=== PATIENT | male | born 1970 | race Caucasian/White ===

== ENCOUNTER 2016-09-08 21:59 | Emergency (ER) | payer BC, OTHER ==
--- NOTE | 2016-09-08 23:05 | EDM.PDOC ---
ED HPI GENERAL MEDICAL PROBLEM - General Chief Complaint: Lower Extremity Injury/Pain Stated Complaint: LEFT ANKLE INJURY Time Seen by Provider: 09/08/16 22:45 Source of Information: Reports: Patient, Family (), RN Notes Reviewed History Limitations: Reports: No Limitations - History of Present Illness INITIAL COMMENTS - FREE TEXT/NARRATIVE: The patient states that he developed left ankle pain yesterday afternoon as he was standing on a piece of equipment at an unusual angle that put stress on his left ankle. He states that the pain began while he was standing unusually, but became worse last night, and today the patient has considerable pain and swelling to the left ankle. He states that he did not suffer any direct injury to the left ankle. He states that the pain was made better last night after drinking a few beers. No prior left ankle injury. The patient's is concerned that the patient has a blood clot in his ankle. The patient's PCP is Keena Luis. Left Ankle Pain Score (Numeric/FACES): 7 - Related Data Allergies Allergy/AdvReac Type Severity Reaction Status Date / Time No Known Allergies Allergy Verified 09/08/16 22:10 Home Meds: Home Meds . [No Known Home Meds] 09/08/16 [History] Past Medical History Musculoskeletal History: Reports: Fracture (clavicle) - Past Surgical History HEENT Surgical History: Reports: Oral Surgery ([place] teeth extraction), Tonsillectomy Social & Family History - Family History Family Medical History: Noncontributory - Tobacco Use Smoking Status *Q: Former Smoker - Caffeine Use Caffeine Use: Reports: Coffee - Alcohol Use Alcohol Use History: Yes Alcohol Use Frequency: Socially - Recreational Drug Use Recreational Drug Use: No - Living Situation & Occupation Living situation: Reports: , with Spouse, with Family (4 daughters) Occupation: Employed ([employer]) Review of Systems - Review of Systems Review Of Systems: See Below Constitutional: Reports: No Symptoms Eyes: Reports: No Symptoms Ears: Reports: No Symptoms Nose: Reports: No Symptoms Mouth/Throat: Reports: No Symptoms Respiratory: Reports: No Symptoms Cardiovascular: Reports: No Symptoms GI/Abdominal: Reports: No Symptoms Genitourinary: Reports: No Symptoms Musculoskeletal: Reports: No Symptoms Skin: Reports: No Symptoms Neurological: Reports: No Symptoms Psychiatric: Reports: No Symptoms ED EXAM, GENERAL - Physical Exam Exam: See Below Exam Limited By: No Limitations General Appearance: Alert, WD/WN, No Apparent Distress Extremities: Other (There is considerable swelling, and mild ecchymosis of the left ankle, when compared to the right. There is tenderness primarily to the lateral aspect of the ankle; no significant tenderness to the anterior or posterior syndesmoses, or medial ankle. Mild pretibial edema on the left, although there is some pretibial edema on the right, as well. Neurovascular status of the left lower extremity is intact.) Course - Vital Signs Last Recorded V/S: Last Vital Signs Temp 37.3 C 09/08/16 22:07 Pulse 97 09/08/16 22:07 Resp 16 09/08/16 22:07 BP 152/77 H 09/08/16 22:07 Pulse Ox 94 L 09/08/16 22:07 - Orders/Labs/Meds Orders: Active Orders 24 hr Category Date Time Status Ankle Min 3V Lt [CR] Stat Exams 09/08/16 22:36 Taken DME for Discharge [COMM] Stat Oth 09/08/16 23:55 Ordered Labs: Laboratory Tests 09/08/16 Range/Units 23:08 D-Dimer, Quantitative 0.56 (0.19-0.59) mg/L - Re-Assessments/Exams Free Text/Narrative Re-Assessment/Exam: 09/08/16 23:30 4-view radiographs of the left ankle appear to be unremarkable. No fractures or dislocations identified. Formal read per the Radiologist pending. 09/08/16 23:58 The patient's d-dimer is negative. X-ray results discussed with the patient and his . He appears to have sprained his left ankle. He will be placed into an Aircast. I will refer him to Dr. Paz, should his symptoms not improve. Departure - Departure Time of Disposition: 23:59 Disposition: Home, Self-Care 01 Condition: Good Clinical Impression: Left ankle sprain - Discharge Information Referrals: Keena Luis NP [Primary Care Provider] - Ramu Paz MD [Physician] - Forms: ED Department Discharge Additional Instructions: You were seen in the emergency room for left ankle pain that developed after standing on your left ankle at an unusual angle. Workup in the ER included x-rays of your left ankle, and a D-dimer, to check for a blood clot. Your x-rays appear to be normal. No broken bones or dislocations. Your D-dimer is negative. You do not have a blood clot. You appear to have sprained your left ankle. You have been placed into an Aircast. Apply this each morning, and remove at bedtime. Elevate your left foot as much as possible when not walking around. Apply an ice pack to your left ankle as much as possible for the next 48 hours, to help minimize swelling. Take [id number] ibuprofen, 2-3 tablets (400-600 mg) every 8 hours, with food, as needed for pain. After one week, begin walking without the Aircast, even if you have discomfort. If you continue to have pain after 2 weeks, please follow-up with the Orthopedic Surgeon Dr. Paz for further evaluation. If any other problems, please do not hesitate to return to the ER. - My Orders Last 24 Hours: My Active Orders 09/08/16 22:36 Ankle Min 3V Lt [CR] Stat 09/08/16 23:55 DME for Discharge [COMM] Stat - Assessment/Plan Last 24 Hours: My Active Orders 09/08/16 22:36 Ankle Min 3V Lt [CR] Stat 09/08/16 23:55 DME for Discharge [COMM] Stat
[2016-09-09 00:20] VITALS: BP 141/79
--- NOTE | 2016-09-09 07:57 | CR ---
Left ankle: Four views of the left ankle were obtained. Soft tissue swelling is identified. Small well-corticated bony density off the inferior medial malleolus is compatible with old injury. Minimal spur at the attachment of the Achilles tendon to the calcaneus is seen. No acute fracture, dislocation or other bony abnormality is appreciated. Impression: 1. Soft tissue swelling. 2. Other incidental findings. Diagnostic code #3
== END 2016-09-09 00:10 | disposition home or self-care (01) ==
LOC: JD.ED 21:59
DX: S93.402A Sprain of unspecified ligament of left ankle, initial encounter (principal); Z98.890 Other specified postprocedural states; Z87.891 Personal history of nicotine dependence; X58.XXXA Exposure to other specified factors, initial encounter
CPT/HCPCS: 36415; 73610-26-LT; 73610-LT; 85379; 99282; 99284